=== PATIENT | male | born 1980 | race African-American/Black ===

== ENCOUNTER 2019-01-29 15:25 | Emergency (ER) | payer MEDICAID, OTHER ==
[~2019-01-29] VITALS: Ht 180.3 cm; Wt 98.9 kg
[2019-01-29 16:21] VITALS: BP 129/81
[2019-01-29] MEDS ORDERED: IBUPROFEN 600 MG TABLET PO ONE ×2 (16:30→16:51)
== END 2019-01-29 18:04 | disposition home or self-care (01) ==
LOC: ER 15:39
DX: S62.636A Displaced fracture of distal phalanx of right little finger, initial encounter for closed fracture (principal); F41.9 Anxiety disorder, unspecified; X58.XXXA Exposure to other specified factors, initial encounter; Y93.89 Activity, other specified; Y92.89 Other specified places as the place of occurrence of the external cause; Y99.8 Other external cause status
CPT/HCPCS: 73140-TC